=== PATIENT | female | born 1955 | race Caucasian/White ===

== ENCOUNTER 2018-01-17 14:53 | Outpatient (CLI) | payer BC | END 2018-01-17 14:54 | disposition home or self-care (01) | LOC: BICMAMMO 14:53 | PROVIDERS: ATTEND Internal Medicine | DX: M81.0 Age-related osteoporosis without current pathological fracture (principal); M85.852 Other specified disorders of bone density and structure, left thigh | CPT/HCPCS: 77063; 77067; 77080 ==

== ENCOUNTER 2018-12-27 13:45 | Outpatient (CLI) | payer MEDICARE ==
--- NOTE | 2018-12-27 14:50 | MMO ---
Bilateral MAMMO Bilat Diag [facility]. CLINICAL HISTORY: Patient is 63 years old and is seen for diagnostic exam,lump or thickening and pain in the left breast. The patient has no family history of breast cancer. The patient has no personal history of cancer. VIEWS: The views performed were: bilateral craniocaudal with tomosynthesis; bilateral mediolateral oblique with tomosynthesis; and bilateral mediolateral with tomosynthesis. FILMS COMPARED: The present examination has been compared to prior imaging studies performed at [facility] on 01/16/2015, 02/12/2016, 01/17/2018 and 12/27/2018. MAMMOGRAM FINDINGS: There are scattered fibroglandular densities. No mammographic or sonograhic abnormality is seen at the site of palpable concern in the left breast. The samll nodule in the left breast at 8:00 is a cyst on US. There are no suspicious masses, suspicious calcifications, or new areas of architectural distortion. IMPRESSION: THERE IS NO MAMMOGRAPHIC EVIDENCE OF MALIGNANCY. A ROUTINE FOLLOW-UP MAMMOGRAM IN 1 YEAR IS RECOMMENDED. THE RESULTS OF THIS EXAM WERE SENT TO THE PATIENT. ACR BI-RADS Category 2 - Benign finding MAMMOGRAPHY NOTE: 1. A negative mammogram report should not delay a biopsy if a dominant of clinically suspicious mass is present. 2. Approximately 10% to 15% of breast cancers are not detected by mammography. 3. Adenosis and dense breasts may obscure an underlying neoplasm. Reported by: RAJESH LAWLER MD Electonically Signed: [id number]
--- NOTE | 2018-12-27 14:53 | ULT ---
LEFT BREAST ULTRASOUND: 12/27/18 HISTORY: Pain and palpable abnormality at the 2 o'clock position of the left breast. FINDINGS: Correlation is made with mammogram same date. No mammographic or sonographic abnormality is seen at the 2 o'clock position (pain/palpable abnormali ty). There is a 2 mm cyst at the 8 o'clock position of the left breast likely corresponding to the finding on the mammogram. IMPRESSION: BIRADS 2: Benign Finding(s) Routine annual screening mammography (for women over age 40). POS: OFF
--- NOTE | 2018-12-27 15:13 | RAD ---
PA AND LATERAL VIEWS CHEST: HISTORY: Cough. FINDINGS: Comparison is made with the exam of 10/14/2015. The heart size is normal. The aorta is tortuous. The lungs are expanded without focal areas of cons olidation, pneumothoraces, or pleural effusions. IMPRESSION: No radiographic evidence of acute cardiopulmonary process. POS: OFF
== END 2018-12-27 13:46 | disposition home or self-care (01) ==
LOC: BICMAMMO 13:45
PROVIDERS: ATTEND Nurse Practitioner Adult Health
DX: R05 Cough (principal); N63.20 Unspecified lump in the left breast, unspecified quadrant; R07.81 Pleurodynia
CPT/HCPCS: 71046; 76642; 77066; G0279

== ENCOUNTER 2019-11-15 10:02 | Day surgery (SDC) | payer MEDICARE, OTHER ==
[2019-11-08 11:13] VITALS: BMI 27.8
[2019-11-13 11:13] LABS: Hemoglobin 14.7 g/dL (12.0-16.0); Mean Corpuscular HGB CONC 33.7 g/dL (32.0-36.0); Mean Corpuscular Hemoglobin 32.4 pg (27.0-31.0); Platelet Count 222 thou/uL (130-400); RBC Distribution Width 11.9 % (11.5-14.5); Red Blood Cell (RBC) Count 4.54 mill/uL (4.20-5.40); White Blood Cell (WBC) Count 7.5 thou/uL (4.8-10.8)
[2019-11-14 13:10] LABS: SARS-CoV-2 MS2 Positive; SARS-CoV-2 N Gene Negative; SARS-CoV-2 S Gene Negative; SARS-CoV-2 by NAA Not Detected (NotDetected); SARS-CoV-2 orf1ab Negative
--- NOTE | 2019-11-14 21:02 | HP ---
REASON FOR ADMISSION: Wide local excision of labial lesion. HISTORY OF PRESENT ILLNESS: Ms. Farooq is a 64-year-old, 1, para 1. She has a long history of a dark lesion, just lateral to the labia minora on her labia. She stated that it is enlarged somewhat recently and is concerned about it. 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 PAST MEDICAL HISTORY: Significant for depression and GERD. PAST SURGICAL HISTORY: Tubal ligation. ALLERGIES: NONE. MEDICATIONS: 1. Sertraline. 2. Pantoprazole. SOCIAL HISTORY: Denies tobacco, alcohol, or IV drug abuse. FAMILY HISTORY: Noncontributory. REVIEW OF SYSTEMS: Noncontributory. PHYSICAL EXAMINATION: GENERAL: White female. VITAL SIGNS: 5 feet and 6 inches, 179, BMI 29. Blood pressure 116/78. HEENT: Within normal limits. LUNGS: Clear to auscultation bilaterally. HEART: Regular rate and rhythm. ABDOMEN: Soft and nontender. No rebound or guarding. Vulva with a 12 mm dark irregular bordered lesion just lateral to the labia minora at approximately 4 o'clock, most consistent with actinic keratosis, but could be a verrucous lesion as well. Vagina without discharge. Cervix without lesion. Uterus is small and anteverted, nontender. Adnexa, no masses. EXTREMITIES: No clubbing, cyanosis, or edema. IMPRESSION: Lesion of the vulva, unlikely to be malignancy, but cannot completely rule out possible verrucous carcinoma. PLAN: We will proceed with wide local excision. The patient understands risks and benefits of procedure including bleeding, infection, incomplete removal, recurrence, and wound breakdown. We will administer appropriate antibiotic and DVT prophylaxis. Job ID: [id number]
[2019-11-15] MEDS ORDERED: PROPOFOL 200 MG/20 ML VIAL ONE (10:58)
[2019-11-15] MEDS ORDERED: Lidocaine 1% PF 5 ML VIAL ONE (10:58)
[2019-11-15] MEDS ORDERED: Dexamethasone 20 MG/5 ML VIAL ONE (10:58)
[2019-11-15] MEDS ORDERED: EPHEDRINE 25 MG/5 ML SYRINGE ONE (10:58)
[2019-11-15] MEDS ORDERED: Ondansetron PF 4 MG/2 ML Vial ONE (10:58)
[2019-11-15] MEDS ORDERED: Fentanyl 100 MCG/2 ML VIAL ONE (11:05)
[2019-11-15] MEDS ORDERED: Famotidine/PF 20 mg/2ml Vial ONE (11:37)
[2019-11-15] MEDS ORDERED: Lidocaine 1% w/Epinephrine 1:100K 20 ML VIAL ONE (11:39)
[2019-11-15] MEDS ORDERED: Bupivacaine PF 0.5% 30 ML VIAL ONE (11:39)
--- NOTE | 2019-11-16 13:55 | OP ---
DATE OF PROCEDURE: 11/15/2019 PREOPERATIVE DIAGNOSIS: Right labia majora lesion consistent with seborrheic keratosis versus verrucous abnormality. POSTOPERATIVE DIAGNOSIS: Right labia majora lesion consistent with seborrheic keratosis versus verrucous abnormality. PROCEDURE: Wide local excision, partial vulvectomy. ANESTHESIA: Laryngeal mask airway. DRAINS: None. MEDICATIONS: 2 g Ancef pre-incision, DVT prophylaxis, SCDs. OPERATIVE FINDINGS: 1. Approximately 8 to 9 mm lesion excised completely with adequate margins. 2. Good closure and reapproximation with hemostasis. DISPOSITION: Recovery room. DESCRIPTION OF PROCEDURE: The patient was taken to the operating room, where anesthesia was achieved without difficulty. She was prepped and draped. Ellipse was drawn around the lesion following lines of Langerhans, it was infiltrated underneath with lidocaine with epinephrine. It was excised using a 15 blade and undermined to get full depth excision in case malignancy was encountered. It was tagged at 12 o'clock, sent for pathologic analysis. Bovie cautery was used to achieve hemostasis at the base. The deep tissue was reapproximated using 2-0 Vicryl and the skin was reapproximated using 4-0 Monocryl subcuticularly and Dermabond. The patient was awakened and LMA removed, taken to recovery room. She will be followed at [facility] in 2 weeks. Job ID: [id number]
== END 2019-11-15 14:17 | disposition home or self-care (01) ==
LOC: SDC 10:02
PROVIDERS: ATTEND Obstetrics & Gynecology
PROC: 0UBMXZZ Excision of Vulva, External Approach (ICD-10-PCS; principal; 2019-11-15)
DX: N90.89 Other specified noninflammatory disorders of vulva and perineum (principal); L82.1 Other seborrheic keratosis; F32.9 Major depressive disorder, single episode, unspecified; K21.9 Gastro-esophageal reflux disease without esophagitis; Z79.899 Other long term (current) drug therapy; Z01.812 Encounter for preprocedural laboratory examination; Z11.59 Encounter for screening for other viral diseases; Z20.828 Contact with and (suspected) exposure to other viral communicable diseases
CPT/HCPCS: 56620; 85027; 86850; 86900; 86901; 88305; U0003; 36415; 87635; J0690; J1100; J2405; J2704; J3010; S0020; S0028